=== PATIENT | female | born 1970 | race Caucasian/White ===

== ENCOUNTER 2021-02-18 10:15 | Inpatient (IN) | payer OTHER ==
[2021-02-18 10:37] VITALS: BMI 42.4
[2021-02-18] MEDS ORDERED: MAGNESIUM HYDROX 2400MG/30ML ORAL SUSPENSION 30 ML CUP PO PRN (11:44)
[2021-02-18] MEDS ORDERED: MAGNESIUM CITRATE 300 ML BOTTLE PO PRN (11:44)
[2021-02-18] MEDS ORDERED: MAG HYDROX/AL HYDROX/SIMETH 30 ML UNIT-DOSE CUP PO PRN (11:44)
[2021-02-18] MEDS ORDERED: diazePAM 5 MG TABLET PO ONE (11:44)
[2021-02-18] MEDS ORDERED: diazePAM 5 MG TABLET PO PRN (11:44)
[2021-02-18] MEDS ORDERED: BISMUTH SUBSALICYLATE 524 MG/30 ML UD PO PRN (11:44)
[2021-02-18] MEDS ORDERED: MENTHOL/PHENOL 1 EACH UD MM PRN (11:44)
[2021-02-18] MEDS ORDERED: ONDANSETRON *ODT* 4 MG TABLET SL PRN (11:44)
[2021-02-18] MEDS ORDERED: ACETAMINOPHEN 325 MG TABLET (FP) PO PRN ×2 (11:44)
[2021-02-18] MEDS ORDERED: ALBUTEROL SO4 HFA INHALER IH PRN (12:21)
[2021-02-18] MEDS: BICTEGRAV/EMTRICIT/TENOFOV (BIKTARVY) 50-200-25 MG TABLET PO SCH (15:54)
[2021-02-18] MEDS: diazePAM 5 MG TABLET PO SCH ×2 (17:48→22:44)
[2021-02-18] MEDS: IBUPROFEN 400 MG TABLET (FP) PO PRN (19:17)
[2021-02-18] MEDS: THIAMINE HCL 100 MG TABLET (FP) PO SCH (22:43)
[2021-02-18] MEDS: MELATONIN 5 MG TABLETS PO SCH (22:43)
[2021-02-19] MEDS: diazePAM 5 MG TABLET PO SCH ×4 (05:27→22:44)
[2021-02-19] MEDS: BICTEGRAV/EMTRICIT/TENOFOV (BIKTARVY) 50-200-25 MG TABLET PO SCH (10:12)
[2021-02-19] MEDS: PRENATAL VITAMINS W/ FOLIC ACID TABLET (FP) PO SCH (10:12)
[2021-02-19 10:43] LABS: HEMATOCRIT 41.3 % (32.4-45.2); HEMOGLOBIN 14.2 GM/dL (10.7-15.3); MCH 34.1 pg (25.7-33.7); MCHC 34.4 g/dl (32.0-36.0); MEAN CELL VOLUME 99.2 fl (80-96); PLATELET COUNT 332 K/MM3 (134-434); RBC 4.16 M/mm3 (3.60-5.2); RDW 14.4 % (11.6-15.6); WHITE BLOOD COUNT 6.4 K/mm3 (4.0-10.0)
[2021-02-19 10:45] LABS: POTASSIUM 3.6 mmol/L (3.5-5.1)
[2021-02-19 10:52] LABS: ALBUMIN 3.7 g/dl (3.4-5.0); BLOOD UREA NITROGEN 9.4 mg/dL (7-18); CALCIUM 9.3 mg/dL (8.5-10.1)
[2021-02-19 10:55] LABS: CREATININE 0.9 mg/dL (0.55-1.3)
[2021-02-19 10:57] LABS: TOT PROT 6.7 g/dl (6.4-8.2)
[2021-02-19] MEDS ORDERED: PNEUMOC 13-VAL CONJ-DIP CRM/PF 0.5 ML DISP.SYRIN IM ONE (12:00)
[2021-02-19] MEDS: ZIPRASIDONE 40 MG CAPSULE PO SCH (18:08)
[2021-02-19] MEDS: METHOCARBAMOL 500 MG TABLET PO PRN (18:09)
[2021-02-19] MEDS: MELATONIN 5 MG TABLETS PO SCH (22:44)
[2021-02-19] MEDS: THIAMINE HCL 100 MG TABLET (FP) PO SCH (22:44)
[2021-02-20] MEDS: diazePAM 5 MG TABLET PO SCH ×3 (05:33→21:45)
[2021-02-20] MEDS: ZIPRASIDONE 40 MG CAPSULE PO SCH (07:25)
[2021-02-20] MEDS: PRENATAL VITAMINS W/ FOLIC ACID TABLET (FP) PO SCH (09:22)
[2021-02-20] MEDS: BICTEGRAV/EMTRICIT/TENOFOV (BIKTARVY) 50-200-25 MG TABLET PO SCH (09:23)
[2021-02-20] MEDS: BENZTROPINE MESYLATE 1 MG TABLET PO SCH (09:23)
[2021-02-20] MEDS: FLUoxetine HCL 20 MG CAPSULE PO SCH (09:24)
[2021-02-20] MEDS: hydrOXYzine PAMOATE 25 MG CAPSULE (FP) PO PRN (17:05)
[2021-02-20] MEDS: METHOCARBAMOL 500 MG TABLET PO PRN (17:05)
[2021-02-20] MEDS: THIAMINE HCL 100 MG TABLET (FP) PO SCH (21:44)
[2021-02-20] MEDS: MELATONIN 5 MG TABLETS PO SCH (21:44)
[2021-02-21] MEDS: diazePAM 5 MG TABLET PO SCH ×2 (05:34→17:04)
[2021-02-21] MEDS: hydrOXYzine PAMOATE 25 MG CAPSULE (FP) PO PRN (05:34)
[2021-02-21] MEDS: FLUoxetine HCL 20 MG CAPSULE PO SCH (09:25)
[2021-02-21] MEDS: BICTEGRAV/EMTRICIT/TENOFOV (BIKTARVY) 50-200-25 MG TABLET PO SCH (09:25)
[2021-02-21] MEDS: BENZTROPINE MESYLATE 1 MG TABLET PO SCH (09:25)
[2021-02-21] MEDS: PRENATAL VITAMINS W/ FOLIC ACID TABLET (FP) PO SCH (09:25)
[2021-02-21] MEDS: ZIPRASIDONE 40 MG CAPSULE PO SCH ×2 (11:00→17:03)
[2021-02-21] MEDS: IBUPROFEN 400 MG TABLET (FP) PO PRN (11:04)
[2021-02-21 13:11] LABS: SARS-CoV-2 NAA Not Detected (Not Detected)
[2021-02-21] MEDS: THIAMINE HCL 100 MG TABLET (FP) PO SCH (21:13)
[2021-02-21] MEDS: MELATONIN 5 MG TABLETS PO SCH (21:13)
[2021-02-22] MEDS ORDERED: diazePAM 5 MG TABLET PO ONE (06:00)
[2021-02-22] MEDS ORDERED: ZIPRASIDONE 80 MG CAPSULE PO SCH (08:00)
[2021-02-22] MEDS: BENZTROPINE MESYLATE 1 MG TABLET PO SCH (08:59)
[2021-02-22] MEDS: hydrOXYzine PAMOATE 25 MG CAPSULE (FP) PO PRN (08:59)
[2021-02-22] MEDS: FLUoxetine HCL 20 MG CAPSULE PO SCH (08:59)
[2021-02-22] MEDS: BICTEGRAV/EMTRICIT/TENOFOV (BIKTARVY) 50-200-25 MG TABLET PO SCH (08:59)
[2021-02-22] MEDS: PRENATAL VITAMINS W/ FOLIC ACID TABLET (FP) PO SCH (08:59)
[2021-02-22 09:02] VITALS: BP 118/82; PULSE 112; TEMP 98
== END 2021-02-22 09:01 | disposition home or self-care (01) | DRG 775 ==
LOC: YASAS 10:15 → Y3N 11:33
PROVIDERS: ADMIT Allergy & Immunology; ATTEND Allergy & Immunology
PROC: HZ2ZZZZ Detoxification Services for Substance Abuse Treatment (ICD-10-PCS; principal; 2021-02-18)
DX: F10.230 Alcohol dependence with withdrawal, uncomplicated (principal); F25.9 Schizoaffective disorder, unspecified; F41.8 Other specified anxiety disorders; F32.9 Major depressive disorder, single episode, unspecified; Z21 Asymptomatic human immunodeficiency virus [HIV] infection status; J45.909 Unspecified asthma, uncomplicated; E66.01 Morbid (severe) obesity due to excess calories; Z68.41 Body mass index [BMI] 40.0-44.9, adult; Z87.891 Personal history of nicotine dependence; Z98.890 Other specified postprocedural states
CPT/HCPCS: 36415; 80053; 81025; 85027; 86593; 86780; 90670; 93005; 93010; C9803; Q0162; U0003; U0005